=== PATIENT | female | born 1990 | race Caucasian/White ===

== ENCOUNTER → 2023-10-17 | Emergency (ER) | payer SELFPAY ==
[~2023-10-17] MED LIST: ACETAMINOPHEN 500 MG TAB ONE; HYDROCODONE/APAP 7.5/325 MG TAB ONE; NEOMYCIN/BAC/POLY OPTH 3.5GM ONE
--- NOTE | 2023-10-17 11:03 | RAD REPORT ---
EXAM DESCRIPTION: CT - CTHCSPWOC - 10/17/2023 10:58 am CLINICAL HISTORY: Trauma, head and neck injury. PAIN COMPARISON: No comparisons TECHNIQUE: Axial 5 mm thick images of the head were obtained. Axial 2 mm thick images of the cervical spine were obtained with sagittal and coronal reconstruction images generated and reviewed. All CT scans are performed using dose optimization technique as appropriate and may include automated exposure control or mA/KV adjustment according to patient size. FINDINGS: CT HEAD WITHOUT CONTRAST: No acute hemorrhage, hydrocephalus or extra-axial collection is identified.No areas of brain edema or midline shift. The paranasal sinuses and mastoids are clear.The calvarium is intact. CT CERVICAL SPINE WITHOUT CONTRAST: No fracture or subluxation.No prevertebral soft tissues swelling is identified. IMPRESSION: No acute intracranial or cervical spine findings.
--- NOTE | 2023-10-17 11:10 | ER ---
Nurse's Notes [facility] Name: Alyssa Miller Age: 33 yrs Sex: Female : 1990 Arrival Date: 10/17/2023 Time: 10:21 Bed 19 Private MD: Diagnosis: Fall on same level, unspecified;Unspecified injury of head, initial encounter;Contusion of unspecified part of head;Abrasion of other part of head-head and face;Strain of muscle, fascia and tendon at neck level, initial encounter Presentation: 10/17 10:31 Chief complaint: Patient states: Fell face forward on concrete, last night while rob1 attempting to grab her dog, "drunk". CO headache. No LOC. 10:31 Coronavirus screen: Vaccine status: Patient reports receiving the 2nd dose of the covid nj1 vaccine. Ebola Screen: Patient denies travel to an Ebola-affected area in the 21 days before illness onset. Initial Sepsis Screen: Does the patient meet any 2 criteria? No. Patient's initial sepsis screen is negative. Does the patient have a suspected source of infection? No. Patient's initial sepsis screen is negative. Risk Assessment: Do you want to hurt yourself or someone else? Patient reports no desire to harm self or others. Onset of symptoms was October 16, 2023. 10:31 Method Of Arrival: Ambulatory [facility] 10:31 Acuity: SHUN 3 [facility] 11:30 Care prior to arrival: None. Care prior to arrival: None. Mechanism of Injury: Fall me1 from standing position. 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 - Social history:: Smoking status: Reported history of juuling and/or vaping. - Immunization history: Last tetanus immunization: - up to date. Screenin:35 [facility] ED Fall Risk Assessment (Adult) History of falling in the last 3 months, me1 including since admission Yes- single mechanical fall (1 pt) Confusion or Disorientation No (0 pts) Intoxicated or Sedated No (0 pts) Impaired Gait No (0 pts) Mobility Assist Device Used No (0 pt) Altered Elimination No (0 pt) Score/Fall Risk Level 0 - 2 = Low Risk Maintained a safe environment, Provided non-skid footwear, Hourly rounding (assess needs \\T\\ fall precautionary measures) done. Abuse screen: Denies threats or abuse. Nutritional screening: No deficits noted. Tuberculosis screening: No symptoms or risk factors identified. Primary Survey: 11:27 NO uncontrolled hemorrhage observed. A: The client is awake and alert. The airway is me1 patent. The client is alert. Airway: patent, No supplemental oxygen in use on arrival. Oral cavity: clear, Trachea midline. Breathing/Chest: Spontaneous respiratory effort, equal unlabored respirations, breath sounds clear bilaterally, regular pattern, symmetrical chest rise and fall. Respiratory effort: spontaneous, unlabored, Breath sounds: clear, bilaterally. Respiratory pattern: regular, Chest inspection: symmetrical rise and fall of the chest. Circulation: No external hemorrhage present. Regular and strong central pulse, skin warm/dry/normal color. Hemorrhage: No external hemorrhage noted. Pulses: palpable right radial artery, right posterior tibial artery, left radial artery and left posterior tibial artery. Skin color: pink, Skin temperature: warm, dry, Heart tones present. Disability Pupils are equal, round, reactive to light and accommodation. Client is alert. Exposure/Environment: There is no evidence of uncontrolled external bleeding. Obvious injury(ies) are noted at this time: abrasions to forehead and nose. 11:27 Reassessment Breathing: Spontaneous respiratory effort, equal unlabored respirations, me1 breath sounds clear bilaterally, regular pattern with symmetrical chest rise and fall. Respiratory effort Spontaneous Unlabored Breath sounds Clear Diminished Respiratory pattern Regular Chest inspection Symmetrical Circulation: No external hemorrhage noted. Regular and strong central pulse, skin warm/dry/normal color. Heart tones Present Pulses Palpable Color [place] Temperature Warm Dry Disability: Pupils Pupils are equal, round, reactive to light and accomodation. Alert. Assessment: 10:35 General: Appears uncomfortable, well groomed, well developed, well nourished, Behavior me1 is calm, cooperative, appropriate for age, Reports fell last night about midnight when trying to lean forward to catch a dog and fell forward hitting her face on the concrete. Abrasions to forehead and nose. c/o headache 05/31. Denies LOC. Pain: Complains of pain in head Pain does not radiate. Pain currently is 10 out of 10 on a pain scale. Quality of pain is described as aching, throbbing, Pain began suddenly, Is continuous. Neuro: Level of Consciousness is awake, alert, obeys commands, Oriented to person, place, time, situation, Appropriate for age. Cardiovascular: Capillary refill < 3 seconds Patient's skin is warm and dry. Respiratory: Airway is patent Trachea midline Respiratory effort is even, unlabored, Respiratory pattern is regular, symmetrical. Derm: Wound noted forehead and nose Wound is abrasion. Vital Signs: 10:30 BP 115 / 72; Pulse 94; Resp 16; Pulse Ox 99% on R/A; me1 10:31 BP 116 / 80; Pulse 89; Resp 18; Temp 99.1(O); Pulse Ox 100% on R/A; Weight 61.23 kg; nj1 Height 5 ft. 3 in. ; Pain 10/10; 11:15 BP 117 / 84; Pulse 95; Resp 16; Pulse Ox 100% on R/A; me1 10:31 Body Mass Index 23.91 (61.23 kg, 160.02 cm) nj1 10:31 Pain Scale: Adult nj1 [place] Coma Score: 10:54 Eye Response: spontaneous(4). Motor Response: obeys commands(6). Verbal Response: iftikhar oriented(5). Total: 15. 11:27 Eye Response: spontaneous(4). Motor Response: obeys commands(6). Verbal Response: me1 oriented(5). Total: 15. Trauma Score (Adult): 11:27 Eye Response: spontaneous(1); Verbal Response: oriented(1); Motor Response: obeys me1 commands(2); Systolic BP: > 89 mm Hg(4); Respiratory Rate: 10 to 29 per min(4); Luann Score: 15; Trauma Score: 12 ED Course: 10:29 Patient arrived in ED. mg5 10:29 Cristian Rios MD is Attending Physician. iftikhar 10:32 Elvia Frey, TOMAS is Primary Nurse. me1 10:35 Patient has correct armband on for positive identification. Bed in low position. Call me1 light in reach. Side rails up X 1. Provided Education on: POC. Verbalized understanding. . 10:35 No provider procedures requiring assistance completed. me1 10:42 Triage completed. nj1 10:57 CT Head C Spine In Process Unspecified. EDMS 11:00 Urinalysis w/ reflexes Sent. me1 11:05 Clavicle Right XRAY In Process Unspecified. EDMS 11:27 Patient maintains SpO2 saturation greater than 95% on room air. me1 11:31 Arm band placed on Patient placed in waiting room. me1 11:31 PREGU Sent. me1 11:31 Patient did not have IV access during this emergency room visit. me1 Administered Medications: 10:55 Not Given (Patient Refused): hydrocodone-acetaminophen(7.5 mg-325 mg) 1 tabs PO once me1 11:01 Drug: Gufxayic-Nltvxhauar-Yblrmculi Topical Ointment 1 application Topical once {Note: me1 forehead and nose abrasion.} Route: Topical; Site: face; 11:31 Follow up: Response: No adverse reaction me1 11:01 Drug: Acetaminophen PO 1000 mg PO once Route: PO; me1 11:30 Follow up: Response: No adverse reaction; Pain is decreased me1 Medication: 10:35 VIS not applicable for this client. me1 Intake: 11:32 PO: 50ml; Total: 50ml. me1 Output: 11:32 Urine: 100ml (Voided); Total: 100ml. me1 Outcome: 11:09 Discharge ordered by . [facility] 11:32 Patient's length of stay was not longer than 2 hours. me1 11:32 Discharged to home ambulatory, with friend, co1 11:32 Condition: stable 11:32 Discharge instructions given to patient, friend, Instructed on discharge instructions, follow up and referral plans. medication usage, Demonstrated understanding of instructions, follow-up care, medications, Prescriptions given X 2, 11:33 Patient left the ED. me1 Signatures: Dispatcher [employer] Cristian Quispe MD MD cha Jaco, Norma RN RN nj1 Elvia Frey RN RN me1 [place] mg5 Corrections: (The following items were deleted from the chart) 10:41 10:35 General: Appears uncomfortable, well groomed, well developed, well nourished, me1 Behavior is calm, cooperative, appropriate for age, Reports fell last night about midnight when trying to lean forward to catch a dog and fell forward hitting her face on the concrete. Abrasions to forehead and nose. c/o headache 05/31 me1
--- NOTE | 2023-10-17 11:10 | EDPHYS ---
Physician Documentation [facility] Name: Alyssa Mliler Age: 33 yrs Sex: Female : 1990 Arrival Date: 10/17/2023 Time: 10:21 Bed 19 Private MD: ED Physician Cristian Rios HPI: 10/17 10:49 This 33 yrs old Female presents to ER via Ambulatory with complaints of Loc, iftikhar Fall Injury. 10:49 Details of fall: The patient fell from an upright position, while walking. Onset: The iftikhar symptoms/episode began/occurred 1 day(s) ago. Associated injuries: The patient sustained injury to the head, abrasion, contusion, hematoma, pain, swelling, tenderness, nose and forehead and head. Severity of symptoms: At their worst the symptoms were mild, in the emergency department the symptoms are unchanged. The patient has not experienced similar symptoms in the past. 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 - Social history:: Smoking status: Reported history of juuling and/or vaping. - Immunization history: Last tetanus immunization: - up to date. ROS: 10:51 Constitutional: Negative for fever, chills, and weight loss, Eyes: Negative for injury, iftikhar pain, redness, and discharge, ENT: Negative for injury, pain, and discharge, Neck: Negative for injury, pain, and swelling, Cardiovascular: Negative for chest pain, palpitations, and edema, Respiratory: Negative for shortness of breath, cough, wheezing, and pleuritic chest pain, Abdomen/GI: Negative for abdominal pain, nausea, vomiting, diarrhea, and constipation, Back: Negative for injury and pain, : Negative for injury, bleeding, discharge, and swelling, Skin: Negative for injury, rash, and discoloration, Neuro: Negative for headache, weakness, numbness, tingling, and seizure, Psych: Negative for depression, anxiety, suicide ideation, homicidal ideation, and hallucinations, Allergy/Immunology: Negative for hives, rash, and allergies, Endocrine: Negative for neck swelling, polydipsia, polyuria, polyphagia, and marked weight changes, Hematologic/Lymphatic: Negative for swollen nodes, abnormal bleeding, and unusual bruising, 10:51 MS/extremity: Positive for pain, of the right clavicle, Exam: 10:51 Constitutional: This is a well developed, well nourished patient who is awake, alert, iftikhar and in no acute distress. Eyes: Pupils equal round and reactive to light, extra-ocular motions intact. Lids and lashes normal. Conjunctiva and sclera are non-icteric and not injected. Cornea within normal limits. Periorbital areas with no swelling, redness, or edema. ENT: Nares patent. No nasal discharge, no septal abnormalities noted. Tympanic membranes are normal and external auditory canals are clear. Oropharynx with no redness, swelling, or masses, exudates, or evidence of obstruction, uvula midline. Mucous membranes moist. Neck: Trachea midline, no thyromegaly or masses palpated, and no cervical lymphadenopathy. Supple, full range of motion without nuchal rigidity, or vertebral point tenderness. No Meningismus. Chest/axilla: Normal chest wall appearance and motion. Nontender with no deformity. No lesions are appreciated. Cardiovascular: Regular rate and rhythm with a normal S1 and S2. No gallops, murmurs, or rubs. Normal PMI, no JVD. No pulse deficits. Respiratory: Lungs have equal breath sounds bilaterally, clear to auscultation and percussion. No rales, rhonchi or wheezes noted. No increased work of breathing, no retractions or nasal flaring. Abdomen/GI: Soft, non-tender, with normal bowel sounds. No distension or tympany. No guarding or rebound. No evidence of tenderness throughout. Back: No spinal tenderness. No costovertebral tenderness. Full range of motion. Skin: Warm, dry with normal turgor. Normal color with no rashes, no lesions, and no evidence of cellulitis. MS/ Extremity: Pulses equal, no cyanosis. Neurovascular intact. Full, normal range of motion. Neuro: Awake and alert, GCS 15, oriented to person, place, time, and situation. Cranial nerves II-XII grossly intact. Motor strength 5/5 in all extremities. Sensory grossly intact. Cerebellar exam normal. Normal gait. 10:51 Head/face: Noted is abrasion(s), contusion, erythema, hematoma, swelling, that is mild, of the top of head, forehead, nose and chin, Vital Signs: 10:30 BP 115 / 72; Pulse 94; Resp 16; Pulse Ox 99% on R/A; me1 10:31 BP 116 / 80; Pulse 89; Resp 18; Temp 99.1(O); Pulse Ox 100% on R/A; Weight 61.23 kg; nj1 Height 5 ft. 3 in. ; Pain 10/10; 11:15 BP 117 / 84; Pulse 95; Resp 16; Pulse Ox 100% on R/A; me1 10:31 Body Mass Index 23.91 (61.23 kg, 160.02 cm) nj1 10:31 Pain Scale: Adult nj1 [place] Coma Score: 10:54 Eye Response: spontaneous(4). Motor Response: obeys commands(6). Verbal Response: iftikhar oriented(5). Total: 15. 11:27 Eye Response: spontaneous(4). Motor Response: obeys commands(6). Verbal Response: me1 oriented(5). Total: 15. Trauma Score (Adult): 11:27 Eye Response: spontaneous(1); Verbal Response: oriented(1); Motor Response: obeys me1 commands(2); Systolic BP: > 89 mm Hg(4); Respiratory Rate: 10 to 29 per min(4); [place] Score: 15; Trauma Score: 12 MDM: 10:29 Patient medically screened. iftikhar 10:31 Patient medically screened. iftikhar 10:54 Differential diagnosis: Contusion of Hematoma on Intracranial bleed- Concussion without iftikhar LOC. cerebral contusion. Differential diagnosis: abrasion, closed head injury, contusion, fracture, laceration, multiple trauma, sprain, strain. Data reviewed: vital signs, nurses notes, radiologic studies, CT scan, plain films. Consideration of Admission/Observation Escalation of care including admission/observation considered. I considered the following discharge prescriptions or medication management in the emergency department Medications were administered in the Emergency Department. See MAR. Independent interpretation of the following test(s) in the Emergency Department CT Scan: My interpretation is ct head and c spine. Test considered but Not performed: Labs: no labs. Historians other than the Patient: Spouse/Significant Other: sig other. 10/17 10:45 Order name: Urinalysis w/ reflexes iftikhar 10/17 10:45 Order name: Clavicle Right XRAY [facility] 10/17 10:45 Order name: CT Head C Spine; Complete Time: 11:08 [facility] 10/17 10:45 Order name: Wound Care; Complete Time: 11:01 [facility] 10/17 10:45 Order name: Ice pack; Complete Time: 10:46 [facility] Administered Medications: 10:55 Not Given (Patient Refused): hydrocodone-acetaminophen(7.5 mg-325 mg) 1 tabs PO once me1 11:01 Drug: Gqwxgiam-Kslvbfelze-Lpvslvtqt Topical Ointment 1 application Topical once {Note: me1 forehead and nose abrasion.} Route: Topical; Site: face; 11:31 Follow up: Response: No adverse reaction me1 11:01 Drug: Acetaminophen PO 1000 mg PO once Route: PO; me1 11:30 Follow up: Response: No adverse reaction; Pain is decreased me1 Disposition Summary: 10/17/23 11:09 Discharge Ordered Notes: Location: Home iftikhar Problem: new iftikhar Symptoms: have improved iftikhar Condition: Stable iftikhar Diagnosis - Fall on same level, unspecified iftikhar - Unspecified injury of head, initial encounter iftikhar - Contusion of unspecified part of head iftikhar - Abrasion of other part of head - head and face iftikhar - Strain of muscle, fascia and tendon at neck level, initial encounter iftikhar Followup: iftikhar - With: Private Physician - When: 2 - 3 days - Reason: Recheck today's complaints, Continuance of care, Re-evaluation by your physician Discharge Instructions: - Discharge Summary Sheet iftikhar - Head Injury, Adult iftikhar - Muscle Strain iftikhar - Neck Contusion iftikhar - Muscle Strain, Urba-mr-Vple iftikhar - Head Injury, Adult, Mner-lh-Ijde iftikhar - Neck Contusion, Nrvw-nl-Sgoi [facility] Forms: - Work release form bd - Medication Reconciliation Form [facility] - Thank You Letter [facility] - Antibiotic Education iftikhar - Prescription Opioid Use iftikhar - Patient Portal Instructions [facility] - Leadership Thank You Letter [facility] Prescriptions: - Centany 2 % Topical ointment - apply 1 application TOPICAL route 3 times per day; 30 gram tube; Refills: 0, iftikhar Product Selection Permitted - Ibuprofen 600 mg Oral Tablet - take 1 tablet ORAL route every 6 hours As needed take with food; 30 tablet; iftikhar Refills: 0, Product Selection Permitted Signatures: Dispatcher [employer] Cristian Quispe MD MD cha Jaco, Norma RN RN nj1 Elvia Frey, RN RN me1
--- NOTE | 2023-10-17 11:12 | RAD REPORT ---
EXAM DESCRIPTION: RAD - Clavicle Right - 10/17/2023 11:04 am CLINICAL HISTORY: PAIN COMPARISON: No comparisons FINDINGS/IMPRESSION: No acute fracture. No malalignment. No significant focal degenerative changes.
[2023-10-17 11:19] LABS: Specific Gravity < 1.005 (1.005-1.030); Urine Bacteria <20 /HPF (<20); Urine Bilirubin NEGATIVE (Negative); Urine Blood Negative (Negative); Urine Clarity Turbid (Clear); Urine Color Colorless (Yellow); Urine Glucose NEGATIVE (Negative); Urine Protein NEGATIVE (Negative); Urine RBC <5 /HPF (None Seen); Urine Urobilinogen Normal (Normal); Urine pH 6.5 (5.0-7.0)
[2023-10-17 12:15] VITALS: BP 116/80; TEMP 99.1; O2SAT 100
== END ==
LOC: ER 10:21
DX: S00.83XA Contusion of other part of head, initial encounter (principal); S00.81XA Abrasion of other part of head, initial encounter; S16.1XXA Strain of muscle, fascia and tendon at neck level, initial encounter; W18.30XA Fall on same level, unspecified, initial encounter
CPT/HCPCS: 70450; 72125; 81001; 99284

== ENCOUNTER → 2023-11-16 | Emergency (ER) | payer OTHER, SELFPAY ==
[~2023-11-16] MED LIST changes: -ACETAMINOPHEN 500 MG TAB ONE; +FAMOTIDINE 20 MG/2 ML VIAL IV ONE; -HYDROCODONE/APAP 7.5/325 MG TAB ONE; -NEOMYCIN/BAC/POLY OPTH 3.5GM ONE; +ONDANSETRON 4 MG/2 ML VIAL ONE
--- OUTSIDE RECORDS SUMMARY | 2023-11-16 12:10 | XMS REPORT | Continuity of Care Document ---
Author Name Unknown Address [address] [place] [address] [employer] Address [address] [place] [address] Care Team Providers [facility] Director Name Role Phone Unavailable Unavailable Unavailable Encounters Start Date/Time End Date/Time Encounter Type Admission Type Attending Clinicians Care Facility Care Department Encounter ID Source 2023-03-17 08:31:23 2023-03-17 08:31:23 Outpatient [facility] [id number] Matty Rai
--- NOTE | 2023-11-16 13:01 | RAD REPORT ---
EXAM DESCRIPTION: US - Abdomen Exam Limited - 11/16/2023 12:35 pm CLINICAL HISTORY: Abdominal pain. COMPARISON: None. FINDINGS: Limited evaluation as patient not fasting Gallbladder is contracted. A gallstone not visualized. The biliary tree is normal caliber. IMPRESSION: Limited examination without visualization of a gross abnormality
[2023-11-16 13:19] LABS: Absolute Eosinophils 0.1 K/uL (0-0.5); Absolute Lymphocytes (CBC) 1.6 K/uL (0.7-4.9); Absolute Monocytes 0.3 K/uL (0.1-1.3); Absolute Neutrophil 2.3 K/uL (1.8-8.0); Basophils % 1.2 % (0-1.3); Hematocrit 39.8 % (36.0-45.0); Hemoglobin 13.3 g/dL (12.0-15.0); Lymphocytes % 36.3 % (15.3-44.8); MCH 32.2 pg (27.0-35.0); MCHC 33.4 g/dL (32.0-36.0); MCV 96.6 fL (80-100); MPV 7.8 fL (7.6-11.3); Monocytes % 6.5 % (3.3-12.3); Platelets 394 thou/uL (152-406); RBC Red Blood Cell Count 4.12 M/uL (3.86-4.86); Red Cell Distribution Width 13.8 % (12.1-15.2); Specific Gravity 1.011 (1.005-1.030); Urine Bilirubin NEGATIVE (Negative); Urine Blood Negative (Negative); Urine Clarity Clear (Clear); Urine Color Light-Yellow (Yellow); Urine Glucose NEGATIVE (Negative); Urine Ketones NEGATIVE (Negative); Urine Microscopic Reflex YN NO UMIC; Urine Nitrite NEGATIVE (Negative); Urine Protein NEGATIVE (Negative); Urine Urobilinogen Normal (Normal)
[2023-11-16 13:21] LABS: Specific Gravity 1.011 (1.005-1.030)
[2023-11-16 13:25] LABS: PT Prothrombin Time 10.7 SECONDS (9.5-12.5); Protime INR 0.97
[2023-11-16 13:35] LABS: Albumin 3.9 g/dL (3.4-5.0); Albumin/Globulin Ratio 0.9 (1.1-1.8); Anion Gap 11.2 mEq/L (5.0-15.0); Bilirubin Total 0.2 mg/dL (0.2-1.0); Globulin 4.4 g/dL (2.3-3.5); Potassium 3.2 mEq/L (3.5-5.1); Protein, Total 8.3 g/dL (6.4-8.2)
--- NOTE | 2023-11-16 13:58 | RAD REPORT ---
EXAM DESCRIPTION: CT - Chest Abdomen Pelvis W Cont - 11/16/2023 1:39 pm CLINICAL HISTORY: Chest and abdominal pain hematemesis COMPARISON: none TECHNIQUE: Computed axial tomography of the chest, abdomen and pelvis was obtained. 100 cc Isovue-30 0 was administered intravenously. Oral contrast was not requested. This limits evaluation of bowel. All CT scans are performed using dose optimization technique as appropriate and may include automated exposure control or mA/KV adjustment according to patient size. FINDINGS: The lungs are clear No mediastinal or hilar lymphadenopathy. No pleural effusion. No pericardial effusion. Small low-density hepatic lesions nonspecific but probably benign. Spleen, pancreas, adrenals and kidneys are unremarkable No evidence of diverticulitis No adnexal mass. Tampon within the vagina. No gross abnormality esophagus/stomach. Bladder wall is mildly thickened IMPRESSION: Bladder wall is mildly thickened. This could be secondary to incomplete distention or mi ld cystitis
--- NOTE | 2023-11-16 14:09 | ER ---
Nurse's Notes [facility] Name: Alyssa Miller Age: 33 yrs Sex: Female : 1990 Arrival Date: 11/16/2023 Time: 12:07 Bed 13 Private MD: Diagnosis: Nausea with vomiting, unspecified;Hematemesis Presentation: 11/15 12:17 Chief complaint: Vomiting bright red blood with clots and chest pressure x 3 days, hb scant amount of vomiting blood for the last month. Coronavirus screen: At this time, the client does not indicate any symptoms associated with coronavirus-19. Ebola Screen: No symptoms or risks identified at this time. Initial Sepsis Screen: Does the patient meet any 2 criteria? No. Patient's initial sepsis screen is negative. Does the patient have a suspected source of infection? No. Patient's initial sepsis screen is negative. Risk Assessment: Do you want to hurt yourself or someone else? Patient reports no desire to harm self or others. Onset of symptoms was September 2023. 12:17 Method Of Arrival: Ambulatory hb 12:18 Acuity: SHUN 3 hb Triage Assessment: 12:18 General: Appears in no apparent distress. Behavior is calm, cooperative. Neuro: Level hb of Consciousness is awake, alert, obeys commands, Oriented to person, place, time, situation. Cardiovascular: Patient's skin is warm and dry. Respiratory: Respiratory effort is even, unlabored, Respiratory pattern is regular, symmetrical. GI: Reports vomiting, blood. 12:19 Pain: Pain currently is 8 out of 10 on a pain scale. 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 - Social history:: Smoking status: Patient denies any tobacco usage or history of. Patient uses alcohol, 3 x week. - Family history:: not pertinent. - Hospitalizations: : No recent hospitalization is reported. Screenin:55 [facility] ED Fall Risk Assessment (Adult) History of falling in the last 3 months, ld1 including since admission No falls in past 3 months (0 pts). Abuse screen: Denies threats or abuse. Denies injuries from another. Nutritional screening: No deficits noted. Tuberculosis screening: No symptoms or risk factors identified. Assessment: 12:40 General: Pt called back to the diagnostic chairs for work up and EKG. kd3 13:53 General: Appears in no apparent distress. uncomfortable, Behavior is calm, cooperative, ld1 appropriate for age. Pain: Complains of pain in chest Pain does not radiate. Pain currently is 8 out of 10 on a pain scale. Quality of pain is described as throbbing, Pain began suddenly, Is continuous. Neuro: Level of Consciousness is awake, alert, obeys commands, Oriented to person, place, time, situation. Cardiovascular: Capillary refill < 3 seconds Patient's skin is warm and dry. Cardiovascular: Reports chest pain. Respiratory: Airway is patent Respiratory effort is even, unlabored. GI: Abdomen is flat, non-distended. : No signs and/or symptoms were reported regarding the genitourinary system. EENT: No signs and/or symptoms were reported regarding the EENT system. Derm: No signs and/or symptoms reported regarding the dermatologic system. Musculoskeletal: No signs and/or symptoms reported regarding the musculoskeletal system. Vital Signs: 12:18 BP 113 / 81; Pulse 96; Resp 16; Temp 98.5; Pulse Ox 98% on R/A; Weight 61.23 kg; Height hb 5 ft. 3 in. ; Pain 8/10; 13:54 BP 116 / 85; Pulse 87; Resp 18; Pulse Ox 99% on R/A; ld1 12:18 Body Mass Index 23.91 (61.23 kg, 160.02 cm) hb 12:18 Pain Scale: Adult hb ED Course: 12:10 Patient arrived in ED. rg4 12:13 Yuval Nava MD is Attending Physician. rn 12:20 Arm band placed on. hb 12:22 Triage completed. hb 12:37 US Abdomen Limited In Process Unspecified. EDMS 13:05 No provider procedures requiring assistance completed. Inserted saline lock: 22 gauge ld1 in right antecubital area, using aseptic technique. Blood collected. 13:06 Ptt, Activated Sent. bc6 13:06 PT-INR Sent. bc6 13:06 CBC with Diff Sent. bc6 13:06 CMP Sent. bc6 13:06 Lipase Sent. bc6 13:06 Test, Urine Sent. bc6 13:06 Urinalysis w/ reflexes Sent. bc6 13:33 Heidy Wiley, RN is Primary Nurse. ld1 13:41 CT Chest, Abdomen, Pelvis - W/Contrast In Process Unspecified. EDMS 13:55 Patient has correct armband on for positive identification. Placed in gown. Bed in low ld1 position. Call light in reach. Side rails up X2. youth nutritional monitor on. Pulse ox on. NIBP on. Door closed. Noise minimized. Warm blanket given. 14:08 Jarrell Ellis MD is Referral Physician. rn 14:33 IV discontinued, intact, bleeding controlled, No redness/swelling at site. ld1 14:34 Provided Education on: medication. ld1 Administered Medications: 13:52 Drug: Famotidine IVP 20 mg IVP once; dilute with 10 mL 0.9% NaCl; give over 2 minutes ld1 Route: IVP; Site: right antecubital; 13:52 Drug: Ondansetron IVP 4 mg IVP once; over 2 minutes Route: IVP; Site: right antecubital;ld1 Medication: 14:33 VIS not applicable for this client. ld1 Outcome: 14:08 Discharge ordered by . rn 14:33 Discharged to home ambulatory, ld1 14:33 Condition: stable 14:33 Discharge instructions given to patient, Instructed on discharge instructions, follow up and referral plans. medication usage, Demonstrated understanding of instructions, follow-up care, medications, Prescriptions given X 2, 14:34 Patient left the ED. ld1 Signatures: Dispatcher [employer] EDMS Yuval Nava MD MD rn Baxter, Heather, RN RN hb Garcia, Rubi rg4 Heidy Wiley, RN RN ld1 Germaine Warner RN RN kd3 Rachel Goss bc6 Corrections: (The following items were deleted from the chart) 12:19 12:17 Chief complaint: Vomiting blood x 1 month, chest pain today. hb hb 12:22 12:17 Chief complaint: Vomiting bright red blood with clots x 3 days, scant amount of hb vomiting blood for the last month. hb
--- NOTE | 2023-11-16 14:09 | EDPHYS ---
Physician Documentation [facility] Name: Alyssa Miller Age: 33 yrs Sex: Female : 1990 Arrival Date: 11/16/2023 Time: 12:07 Bed 13 Private MD: ED Physician Yuval Nava HPI: 11/15 14:03 This 33 yrs old Female presents to ER via Ambulatory with complaints of Vomiting, Chest rn Pain. 14:03 The patient presents to the emergency department with nausea, vomiting. rn 14:03 Onset: The symptoms/episode began/occurred 3 day(s) ago. Possible causes: unknown. The rn symptoms are aggravated by alcohol, The symptoms are alleviated by nothing. Severity of symptoms: At their worst the symptoms were mild in the emergency department the symptoms are unchanged. The patient has not experienced similar symptoms in the past. Patient reports several days of nausea and vomiting with chest pain. Has noticed small amounts of blood in the emesis. States has had symptoms of acid reflux and nausea for the last month but worse over the last few days. States on the weekend drinks heavily but not a daily drinker. No blood in stool. No known liver problems. No blood thinners.. 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 - Social history:: Smoking status: Patient denies any tobacco usage or history of. Patient uses alcohol, 3 x week. - Family history:: not pertinent. - Hospitalizations: : No recent hospitalization is reported. ROS: 14:03 Constitutional: Negative for fever, chills, and weight loss, Cardiovascular: Negative rn for chest pain, palpitations, and edema, Respiratory: Negative for shortness of breath, cough, wheezing, and pleuritic chest pain, Abdomen/GI: Positive for nausea and hematemesis (small episodes) Back: Negative for injury and pain, MS/Extremity: Negative for injury and deformity, Skin: Negative for injury, rash, and discoloration, Neuro: Negative for headache, weakness, numbness, tingling, and seizure, Exam: 14:03 Constitutional: This is a well developed, well nourished patient who is awake, alert, rn and in no acute distress. Cardiovascular: Regular rate and rhythm. No pulse deficits. Respiratory: No increased work of breathing, no retractions or nasal flaring. Abdomen/GI: Soft, nontender no rebound or guarding MS/ Extremity: Pulses equal, no cyanosis. Neuro: Awake and alert, GCS 15 Vital Signs: 12:18 BP 113 / 81; Pulse 96; Resp 16; Temp 98.5; Pulse Ox 98% on R/A; Weight 61.23 kg; Height hb 5 ft. 3 in. ; Pain 8/10; 13:54 BP 116 / 85; Pulse 87; Resp 18; Pulse Ox 99% on R/A; ld1 12:18 Body Mass Index 23.91 (61.23 kg, 160.02 cm) hb 12:18 Pain Scale: Adult hb MDM: 12:13 Patient medically screened. rn 14:03 Differential diagnosis: Nonspecific abd pain, gastritis, cholecystitis, viral rn gastroenteritis, gastroenteritis, Vanessa-Choi, hematemesis, esophagitis, gastritis, GERD. Data reviewed: vital signs, nurses notes, lab test result(s), radiologic studies, CT scan, ultrasound, and as a result, I will discharge patient. Counseling: I had a detailed discussion with the patient and/or guardian regarding the historical points, exam findings, and any diagnostic results supporting the discharge/admit diagnosis, lab results, radiology results, the need for outpatient follow up, to return to the emergency department if symptoms worsen or persist or if there are any questions or concerns that arise at home. Special discussion: Based on the patient's Hx, exam, and Dx evaluation, there is no indication for emergent surgery or inpatient Tx. It is understood by the patient/guardian that if the Sx's persist or worsen they need to return immediately for re-evaluation. I discussed with the patient/guardian in detail that at this point there is no indication for admission to the hospital. It is understood, however, that if the symptoms persist or worsen the patient needs to return immediately for re-evaluation. Based on the history and exam findings, there is no indication for further emergent testing or inpatient evaluation. I discussed with the patient/guardian the need to see the rotary furnace tender for further evaluation of the symptoms. ED course: Labs unremarkable. Normal H\T\H. No acute findings on CT or ultrasound. Will discharge home with instructions to stop drinking, antacids, GI follow-up, and return precautions.. 11/15 12:23 Order name: CBC with Diff; Complete Time: 13:58 rn 11/15 12:23 Order name: CMP; Complete Time: 13:58 rn 11/15 12:23 Order name: Lipase; Complete Time: 13:58 rn 11/15 12:23 Order name: Test, Urine; Complete Time: 13:58 rn 11/15 12:23 Order name: Urinalysis w/ reflexes; Complete Time: 13:58 rn 11/15 12:23 Order name: PT-INR; Complete Time: 13:58 rn 11/15 12:23 Order name: Ptt, Activated; Complete Time: 13:58 rn 11/15 12:23 Order name: US Abdomen Limited; Complete Time: 13:58 11/15 12:23 Order name: CT Chest, Abdomen, Pelvis - W/Contrast; Complete Time: 13:58 rn 11/15 12:23 Order name: IV Saline Lock; Complete Time: 13:06 rn 11/15 12:23 Order name: Labs collected and sent; Complete Time: 13:06 rn Administered Medications: 13:52 Drug: Famotidine IVP 20 mg IVP once; dilute with 10 mL 0.9% NaCl; give over 2 minutes ld1 Route: IVP; Site: right antecubital; 13:52 Drug: Ondansetron IVP 4 mg IVP once; over 2 minutes Route: IVP; Site: right antecubital;ld1 Disposition Summary: 11/16/23 14:08 Discharge Ordered Notes: Location: Home rn Problem: new rn Symptoms: have improved rn Condition: Stable rn Diagnosis - Nausea with vomiting, unspecified rn - Hematemesis rn Followup: rn - With: Jarrell Ellis MD - When: As needed - Reason: Recheck today's complaints, Re-evaluation by your physician Discharge Instructions: - Discharge Summary Sheet rn - Hematemesis rn - Vanessa-Choi Syndrome rn - Nausea and Vomiting, Adult rn Forms: - Medication Reconciliation Form rn - Thank You Letter rn - Antibiotic rn medicare - Prescription Opioid Use rn - Patient Portal Instructions rn - Leadership Thank You Letter rn - Work release form kd3 Prescriptions: - ondansetron 4 mg Oral Tablet,disintegrating - take 1 tablet ORAL route every 8 hours As needed; 12 tablet; Refills: 0, rn Product Selection Permitted - Protonix 40 mg Oral Tablet - take 1 tablet ORAL route once daily; 30 tablet; Refills: 0, Product Selection rn Permitted Signatures: Dispatcher [employer] Yuval Gaspar MD MD rn Baxter, Heather, RN RN Heidy Wiley RN RN ld1
[2023-11-16 15:33] VITALS: BP 116/85; TEMP 98.5; O2SAT 99
== END ==
LOC: ER 12:07
DX: K92.0 Hematemesis (principal); F31.9 Bipolar disorder, unspecified
CPT/HCPCS: 85025; 36415; 81025; 85610; 85730; 81003; 83690; 80053; 71260; 74177; 76705; Q9967; J2405

== ENCOUNTER 2023-11-17 11:51 | Emergency (ER) | payer OTHER ==
--- OUTSIDE RECORDS SUMMARY | 2023-11-17 11:55 | XMS REPORT | Continuity of Care Document ---
Author Name Unknown Address [address] [place] [address] thconnect Address [address] [place] [address] [address] [place] [address] Care Team Providers Care Burrer Hand Name Role Phone Unavailable Unavailable Unavailable Encounters Start Date/Time End Date/Time Encounter Type Admission Type Attending Clinicians Care Facility Care Department Encounter ID Source 2023-03-17 08:31:23 2023-03-17 08:31:23 Outpatient [facility] [id number] Matty Rai
[2023-11-17] MEDS ORDERED: NA CHLORIDE 0.9% 1,000 ML ONE (12:20)
[2023-11-17] MEDS ORDERED: ONDANSETRON 4 MG/2 ML VIAL ONE (12:20)
[2023-11-17 12:37] LABS: Absolute Eosinophils 0.1 K/uL (0-0.5); Absolute Lymphocytes (CBC) 1.8 K/uL (0.7-4.9); Absolute Monocytes 0.4 K/uL (0.1-1.3); Absolute Neutrophil 3.8 K/uL (1.8-8.0); Basophils % 0.8 % (0-1.3); Eosinophils % 1.2 % (0-4.4); Hematocrit 36.4 % (36.0-45.0); Lymphocytes % 29.3 % (15.3-44.8); MCH 31.7 pg (27.0-35.0); MCHC 33.1 g/dL (32.0-36.0); MCV 95.7 fL (80-100); MPV 7.3 fL (7.6-11.3); Monocytes % 7.3 % (3.3-12.3); Neutrophils % 61.4 % (41.7-73.7); Platelets 379 thou/uL (152-406)
[2023-11-17 12:49] LABS: Specific Gravity 1.008 (1.005-1.030)
[2023-11-17 12:52] LABS: Specific Gravity 1.008 (1.005-1.030); Urine Bacteria <20 /HPF (<20); Urine Bilirubin NEGATIVE (Negative); Urine Blood Negative (Negative); Urine Clarity Extremely Turbid (Clear); Urine Color Light-Yellow (Yellow); Urine Culture Reflex Order NOT NEEDED; Urine Glucose NEGATIVE (Negative); Urine Ketones NEGATIVE (Negative); Urine Microscopic Reflex YN ORDER UMIC; Urine Mucus Slight /HPF (None Seen); Urine Nitrite NEGATIVE (Negative); Urine Protein NEGATIVE (Negative); Urine RBC <5 /HPF (None Seen); Urine Urobilinogen Normal (Normal); Urine WBC <5 /HPF (<5)
[2023-11-17 12:53] LABS: Albumin 3.4 g/dL (3.4-5.0); Albumin/Globulin Ratio 0.9 (1.1-1.8); Anion Gap 11.1 mEq/L (5.0-15.0); Bilirubin Total 0.2 mg/dL (0.2-1.0); Globulin 3.8 g/dL (2.3-3.5); Potassium 3.1 mEq/L (3.5-5.1); Protein, Total 7.2 g/dL (6.4-8.2)
--- NOTE | 2023-11-17 13:15 | ER ---
Nurse's Notes [facility] Name: Alyssa Miller Age: 33 yrs Sex: Female : 1990 Arrival Date: 11/17/2023 Time: 11:51 Bed 15 Private MD: Diagnosis: Bipolar disorder, unspecified;GI Bleed/ Gastrointestinal hemorrhage, unspecified-UPPER, STABLE;Epigastric abdominal tenderness;Vomiting;Hematemesis;Hypokalemia Presentation: 11/16 12:07 Chief complaint: EMS states: vomiting blood since yesterday , was seen here and sent iw home with antacid, today symptoms are worse, she is having more abd pain. Coronavirus screen: At this time, the client does not indicate any symptoms associated with coronavirus-19. Ebola Screen: Patient negative for fever greater than or equal to 101.5 degrees Fahrenheit, and additional compatible Ebola Virus Disease symptoms Patient denies exposure to infectious person. Patient denies travel to an Ebola-affected area in the 21 days before illness onset. No symptoms or risks identified at this time. Initial Sepsis Screen: Does the patient meet any 2 criteria? No. Patient's initial sepsis screen is negative. Does the patient have a suspected source of infection? No. Patient's initial sepsis screen is negative. Risk Assessment: Do you want to hurt yourself or someone else? Patient reports no desire to harm self or others. Onset of symptoms was November 17, 2023. 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 - Social history:: Smoking status: Reported history of juuling and/or vaping. Screenin:25 [facility] ED Fall Risk Assessment (Adult) History of falling in the last 3 months, me1 including since admission No falls in past 3 months (0 pts) Confusion or Disorientation No (0 pts) Intoxicated or Sedated No (0 pts) Impaired Gait No (0 pts) Mobility Assist Device Used No (0 pt) Altered Elimination No (0 pt) Score/Fall Risk Level 0 - 2 = Low Risk Maintained a safe environment, Provided non-skid footwear, Hourly rounding (assess needs \T\ fall precautionary measures) done. Abuse screen: Denies threats or abuse. Nutritional screening: No deficits noted. Tuberculosis screening: No symptoms or risk factors identified. Assessment: 12:25 General: Appears uncomfortable, ill, well groomed, well developed, well nourished, me1 Behavior is calm, cooperative, appropriate for age, Reports seen here yesterday for vomiting blood. Has continued to have bloody emesis and now has RUQ pain. Pain: Complains of pain in right upper quadrant Pain does not radiate. Pain currently is 9 out of 10 on a pain scale. Quality of pain is described as sharp, Pain began gradually, 1 day ago. Is continuous. Neuro: Level of Consciousness is awake, alert, obeys commands, Oriented to person, place, time, situation, Appropriate for age. Cardiovascular: Capillary refill < 3 seconds Patient's skin is warm and dry. Respiratory: Airway is patent Respiratory effort is even, unlabored, Respiratory pattern is regular, symmetrical. GI: Abdomen is flat, Reports upper abdominal pain, nausea, vomiting. : No signs and/or symptoms were reported regarding the genitourinary system. EENT: No signs and/or symptoms were reported regarding the EENT system. Derm: No signs and/or symptoms reported regarding the dermatologic system. Derm: Skin is intact, is healthy with good turgor, Skin is pink, warm \T\ dry. Musculoskeletal: No signs and/or symptoms reported regarding the musculoskeletal system. Vital Signs: 12:10 BP 109 / 76; Pulse 95; Resp 16; Temp 98.9(O); Pulse Ox 96% ; iw 13:00 BP 108 / 75; Pulse 97; Resp 16; Pulse Ox 100% on R/A; me1 14:00 BP 102 / 73; Pulse 80; Resp 16; Pulse Ox 99% on R/A; me1 ED Course: 12:07 Patient arrived in ED. iw 12:08 Triage completed. iw 12:08 Cristian Rios MD is Attending Physician. [facility] 12:09 Arm band placed on. iw 12:10 Abril Pelayo RN is Primary Nurse. iw 12:25 Patient has correct armband on for positive identification. Bed in low position. Call me1 light in reach. Side rails up X 1. Provided Education on: POC. Verbalized understanding. . Client placed on continuous cardiac and pulse oximetry monitoring. NIBP monitoring applied. Pulse ox on. NIBP on. 12:25 No provider procedures requiring assistance completed. Maintain EMS IV. Dressing me1 intact. Good blood return noted. Site clean \T\ dry. Gauge \T\ site: 20g RAC. 12:31 Initial lab(s) drawn, by me, sent to lab. me1 12:32 Lipase Sent. me1 12:32 Comprehensive Metabolic Panel Sent. me1 12:32 CBC with Diff Sent. me1 12:51 Elvia Frey, TOMAS is Primary Nurse. me1 13:12 Barry Mckeon MD is Referral Physician. iftikhar 14:17 IV discontinued, intact, bleeding controlled, No redness/swelling at site. Pressure me1 dressing applied. Administered Medications: 12:24 Drug: Ondansetron IVP 4 mg IVP once; over 2 minutes Route: IVP; Site: right antecubital;me1 13:24 Follow up: Response: No adverse reaction; Nausea unchanged me1 12:51 Drug: NS 0.9% IV 1000 ml IV at 1 bolus Per protocol; 1000 mL bolus Route: IV; Rate: 1 me1 bolus; Site: right antecubital; 14:20 Follow up: IV Status: Completed infusion; IV Intake: 100ml me1 13:23 Drug: Pantoprazole IVP 40 mg IVP once Route: IVP; Site: right antecubital; me1 13:45 Follow up: Response: No adverse reaction me1 13:23 Drug: Promethazine IVP 12.5 mg IVP once Route: IVP; Site: right antecubital; me1 13:45 Follow up: Response: No adverse reaction; Nausea is decreased me1 13:23 Drug: morphine IVP or IV 4 mg IVP once over 4 mins Route: IVP; Infused Over: 4 mins; me1 Site: right antecubital; 13:45 Follow up: Response: No adverse reaction; Pain is decreased me1 13:24 Drug: Sucralfate PO 1 grams PO once Route: PO; me1 13:46 Follow up: Response: No adverse reaction me1 13:42 Drug: Potassium PO Effervescent Tablet 25 mEq PO once; dissolve in 4 ounces of water or me1 juice Route: PO; 14:08 Follow up: Response: No adverse reaction me1 Medication: 12:25 VIS not applicable for this client. me1 Intake: 14:20 IV: 100ml; Total: 100ml. me1 Outcome: 13:14 Discharge ordered by . iftikhar 14:17 Discharged to home ambulatory, with friend, me1 14:17 Condition: stable 14:17 Discharge instructions given to patient, friend, Instructed on discharge instructions, follow up and referral plans. medication usage, Demonstrated understanding of instructions, follow-up care, medications, Prescriptions given X 5 14:20 Patient left the ED. me1 Signatures: Cristian Rios MD MD cha Williams, Irene, RN RN Elvia Frey RN RN me1
--- NOTE | 2023-11-17 13:15 | EDPHYS ---
Physician Documentation [facility] Name: Alyssa Miller Age: 33 yrs Sex: Female : 1990 Arrival Date: 11/17/2023 Time: 11:51 Bed 15 Private MD: ED Physician Cristian Rios HPI: 11/16 13:04 This 33 yrs old Female presents to ER via EMS with complaints of iftikhar Nausea/Vomiting. 13:04 The patient presents to the emergency department with nausea, vomiting, abdominal pain, iftikhar of the right upper quadrant and right lower quadrant. Onset: The symptoms/episode began/occurred 2 day(s) ago. Possible causes: unknown. 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 - Social history:: Smoking status: Reported history of juuling and/or vaping. ROS: 13:05 Constitutional: Negative for fever, chills, and weight loss, Eyes: Negative for injury, iftikhar pain, redness, and discharge, ENT: Negative for injury, pain, and discharge, Neck: Negative for injury, pain, and swelling, Cardiovascular: Negative for chest pain, palpitations, and edema, Respiratory: Negative for shortness of breath, cough, wheezing, and pleuritic chest pain, Back: Negative for injury and pain, : Negative for injury, bleeding, discharge, and swelling, MS/Extremity: Negative for injury and deformity, Skin: Negative for injury, rash, and discoloration, Neuro: Negative for headache, weakness, numbness, tingling, and seizure, Psych: Negative for depression, anxiety, suicide ideation, homicidal ideation, and hallucinations, Allergy/Immunology: Negative for hives, rash, and allergies, Endocrine: Negative for neck swelling, polydipsia, polyuria, polyphagia, and marked weight changes, Hematologic/Lymphatic: Negative for swollen nodes, abnormal bleeding, and unusual bruising, 13:05 Abdomen/GI: Positive for abdominal pain, nausea and vomiting, hematemesis, Exam: 13:05 Constitutional: This is a well developed, well nourished patient who is awake, alert, iftikhar and in no acute distress. Head/Face: Normocephalic, atraumatic. Eyes: Pupils equal round and reactive to light, extra-ocular motions intact. Lids and lashes normal. Conjunctiva and sclera are non-icteric and not injected. Cornea within normal limits. Periorbital areas with no swelling, redness, or edema. ENT: Nares patent. No nasal discharge, no septal abnormalities noted. Tympanic membranes are normal and external auditory canals are clear. Oropharynx with no redness, swelling, or masses, exudates, or evidence of obstruction, uvula midline. Mucous membranes moist. Neck: Trachea midline, no thyromegaly or masses palpated, and no cervical lymphadenopathy. Supple, full range of motion without nuchal rigidity, or vertebral point tenderness. No Meningismus. Chest/axilla: Normal chest wall appearance and motion. Nontender with no deformity. No lesions are appreciated. Cardiovascular: Regular rate and rhythm with a normal S1 and S2. No gallops, murmurs, or rubs. Normal PMI, no JVD. No pulse deficits. Respiratory: Lungs have equal breath sounds bilaterally, clear to auscultation and percussion. No rales, rhonchi or wheezes noted. No increased work of breathing, no retractions or nasal flaring. Back: No spinal tenderness. No costovertebral tenderness. Full range of motion. Skin: Warm, dry with normal turgor. Normal color with no rashes, no lesions, and no evidence of cellulitis. MS/ Extremity: Pulses equal, no cyanosis. Neurovascular intact. Full, normal range of motion. Neuro: Awake and alert, GCS 15, oriented to person, place, time, and situation. Cranial nerves II-XII grossly intact. Motor strength 5/5 in all extremities. Sensory grossly intact. Cerebellar exam normal. Normal gait. Psych: Awake, alert, with orientation to person, place and time. Behavior, mood, and affect are within normal limits. 13:05 Abdomen/GI: Inspection: abdomen appears normal, Bowel sounds: normal, Palpation: mild abdominal tenderness, in the right upper quadrant and right lower quadrant, Liver: no appreciated palpable abnormalities, Hernia: not appreciated, 13:05 Musculoskeletal/extremity: Circulation is intact in all extremities. Sensation intact. Compartment Syndrome exam of affected extremity: is normal. Weight bearing: able to fully bear weight, DVT Exam: No signs of deep vein thrombosis. no pain, no swelling, no tenderness, negative Homans' sign noted on exam, no appreciated bluish discoloration, no erythema, no increased warmth, Vital Signs: 12:10 BP 109 / 76; Pulse 95; Resp 16; Temp 98.9(O); Pulse Ox 96% ; iw 13:00 BP 108 / 75; Pulse 97; Resp 16; Pulse Ox 100% on R/A; me1 14:00 BP 102 / 73; Pulse 80; Resp 16; Pulse Ox 99% on R/A; me1 MDM: 12:08 Patient medically screened. [facility] 13:11 Differential diagnosis: Nonspecific abd pain, gastritis, cholecystitis, pancreatitis, iftikhar appendicitis, diverticulitis, viral gastroenteritis, gastroenteritis. Data reviewed: vital signs, nurses notes, lab test result(s), EKG, radiologic studies, CT scan, plain films. Consideration of Admission/Observation Escalation of care including admission/observation considered. I considered the following discharge prescriptions or medication management in the emergency department Medications were administered in the Emergency Department. See MAR. Independent interpretation of the following test(s) in the Emergency Department CT Scan: My interpretation is CT AND GB FROM 11/15. Test considered but Not performed: CT: NO REPEAT CT/USG. Care significantly affected by the following chronic conditions: BIPOLAR. 11/16 12:10 Order name: CBC with Diff; Complete Time: 12:55 [facility] 11/16 12:10 Order name: Comprehensive Metabolic Panel; Complete Time: 13:03 [facility] 11/16 12:10 Order name: Lipase; Complete Time: 13:03 [facility] 11/16 12:10 Order name: Urinalysis w/ reflexes; Complete Time: 12:55 [facility] 11/16 12:10 Order name: PREGU; Complete Time: 12:55 [facility] Administered Medications: 12:24 Drug: Ondansetron IVP 4 mg IVP once; over 2 minutes Route: IVP; Site: right antecubital;me1 13:24 Follow up: Response: No adverse reaction; Nausea unchanged me1 12:51 Drug: NS 0.9% IV 1000 ml IV at 1 bolus Per protocol; 1000 mL bolus Route: IV; Rate: 1 me1 bolus; Site: right antecubital; 14:20 Follow up: IV Status: Completed infusion; IV Intake: 100ml me1 13:23 Drug: Pantoprazole IVP 40 mg IVP once Route: IVP; Site: right antecubital; me1 13:45 Follow up: Response: No adverse reaction me1 13:23 Drug: Promethazine IVP 12.5 mg IVP once Route: IVP; Site: right antecubital; me1 13:45 Follow up: Response: No adverse reaction; Nausea is decreased me1 13:23 Drug: morphine IVP or IV 4 mg IVP once over 4 mins Route: IVP; Infused Over: 4 mins; me1 Site: right antecubital; 13:45 Follow up: Response: No adverse reaction; Pain is decreased me1 13:24 Drug: Sucralfate PO 1 grams PO once Route: PO; me1 13:46 Follow up: Response: No adverse reaction me1 13:42 Drug: Potassium PO Effervescent Tablet 25 mEq PO once; dissolve in 4 ounces of water or me1 juice Route: PO; 14:08 Follow up: Response: No adverse reaction me1 Disposition Summary: 11/17/23 13:14 Discharge Ordered Notes: Location: Home iftikhar Problem: new iftikhar Symptoms: have improved iftikhar Condition: Stable iftikhar Diagnosis - Bipolar disorder, unspecified iftikhar - GI Bleed/ Gastrointestinal hemorrhage, unspecified - UPPER, STABLE iftikhar - Epigastric abdominal tenderness iftikhar - Vomiting iftikhar - Hematemesis iftikhar - Hypokalemia iftikhar Followup: iftikhar - With: Private Physician - When: 2 - 3 days - Reason: Recheck today's complaints, Continuance of care, Re-evaluation by your physician Followup: iftikhar - With: Barry Mckeon MD - When: 2 - 3 days - Reason: Recheck today's complaints, Continuance of care, Re-evaluation by your physician Discharge Instructions: - Discharge Summary Sheet iftikhar - Abdominal Pain, Adult iftikhar - Gastrointestinal Bleeding iftikhar - Hematemesis iftikhar - Abdominal Pain, Adult, Lond-no-Dtmk iftikhar - Gastrointestinal Bleeding, [id number] iftikhar - Vomiting, Adult iftikhar Forms: - Medication Reconciliation Form iftikhar - Thank You Letter iftikhar - Antibiotic Education iftikhar - Prescription Opioid Use iftikhar - Patient Portal Instructions iftikhar - Leadership Thank You Letter iftikhar - Work release form me1 Prescriptions: - ondansetron 4 mg Oral Tablet,disintegrating - take 1 tablet ORAL route every 6-8 hours for 5 days; 20 tablet; Refills: 0, iftikhar Product Selection Permitted - promethazine 25 mg Rectal suppository - insert 1 suppository RECTAL route every 6 hours as needed for nausea and iftikhar vomiting; 15 suppository; Refills: 0, Product Selection Permitted - Carafate 1 gram Oral tablet - take 1 tablet ORAL route 4 times per day take on an empty stomach, beginning on iftikhar waking and last dose at bedtime; 40 tablet; Refills: 0, Product Selection Permitted - Protonix 40 mg Oral Tablet - take 1 tablet ORAL route once daily; 30 tablet; Refills: 0, Product Selection iftikhar Permitted - dicyclomine 20 mg Oral tablet - take 1 tablet ORAL route 4 times per day; 28 tablet; Refills: 0, Product iftikhar Selection Permitted Signatures: Dispatcher [employer] Cristian Quispe MD MD cha Williams, Irene RN TOMAS Elvia Frey RN RN me1
[2023-11-17] MEDS ORDERED: PANTOPRAZOLE 40 MG INJ ONE (13:16)
[2023-11-17] MEDS ORDERED: PROMETHAZINE INJ 25 MG/ML AMP ONE (13:16)
[2023-11-17] MEDS ORDERED: SUCRALFATE 1 GM TABLET ONE (13:17)
[2023-11-17] MEDS ORDERED: MORPHINE 4 MG/ML SYR ONE (13:17)
[2023-11-17] MEDS ORDERED: POTASSIUM 25 MEQ EFFERV TAB ONE (13:40)
[2023-11-17 14:49] VITALS: BP 102/73; TEMP 98.9; O2SAT 99
--- NOTE | 2023-11-18 11:56 | EKG ---
Test Date: 2023-11-16 Test Time: 11:53:57 Vp Analysis: PARISH MEASUREMENT RESULTS: Intervals: Rate: 87 GA: 120 QRSD: 86 QT: 386 QTc: 464 [place]: P: 62 GA: 120 QRS: 72 T: 68 INTERPRETIVE STATEMENTS: Normal sinus rhythm Normal ECG No previous ECG available for comparison Electronically Signed On 11-18-23 11:50:33 CDT by Antoine Morales
== END 2023-11-17 14:20 | disposition home or self-care (01) ==
LOC: ER 11:51
DX: K92.0 Hematemesis (principal); E87.6 Hypokalemia; R10.816 Epigastric abdominal tenderness; F31.9 Bipolar disorder, unspecified
CPT/HCPCS: 96361; 93005; 85025; 81001; 36415; 81025; 83690; 80053; 96375; 96374; 99284; J2550; C9113; J2405; J7030

== ENCOUNTER 2023-12-08 13:32 | Emergency (ER) | payer OTHER ==
--- OUTSIDE RECORDS SUMMARY | 2023-12-08 13:35 | XMS REPORT | Continuity of Care Document ---
Author Name Unknown Address [address] [place] [address] [employer] Address [address] [place] [address] [address] [place] [address] Care Team Providers Care Upstream Biomanufacturing Technician Name Role Phone Unavailable Unavailable Unavailable Encounters Start Date/Time End Date/Time Encounter Type Admission Type Attending Clinicians Care Facility Care Department Encounter ID Source 2023-03-17 08:31:23 2023-03-17 08:31:23 Outpatient [facility] [id number] Matty Rai
[2023-12-08] MEDS ORDERED: NA CHLORIDE 0.9% 1,000 ML ONE ×2 (14:17→16:30)
[2023-12-08 14:39] LABS: Specific Gravity 1.013 (1.005-1.030)
[2023-12-08 14:42] LABS: Absolute Basophils 0.1 K/uL (0-0.5); Absolute Eosinophils 0.1 K/uL (0-0.5); Absolute Lymphocytes (CBC) 1.4 K/uL (0.7-4.9); Absolute Monocytes 0.4 K/uL (0.1-1.3); Absolute Neutrophil 3.2 K/uL (1.8-8.0); Basophils % 1.1 % (0-1.3); Eosinophils % 1.2 % (0-4.4); Hematocrit 41.5 % (36.0-45.0); Lymphocytes % 27.8 % (15.3-44.8); MCH 32.5 pg (27.0-35.0); MCHC 33.7 g/dL (32.0-36.0); MCV 96.3 fL (80-100); MPV 7.9 fL (7.6-11.3); Monocytes % 7.5 % (3.3-12.3); Neutrophils % 62.4 % (41.7-73.7); Platelets 316 thou/uL (152-406); RBC Red Blood Cell Count 4.31 M/uL (3.86-4.86); Red Cell Distribution Width 13.6 % (12.1-15.2)
[2023-12-08 14:45] LABS: PT Prothrombin Time 10.3 SECONDS (9.5-12.5); PTT, Activated Partial Thromb 27.3 SECONDS (24.3-36.9); Protime INR 0.93
[2023-12-08 14:46] LABS: Specific Gravity 1.013 (1.005-1.030); Sqamous Epithelial <5 /HPF (None Seen); Urine Bacteria None Seen /HPF (<20); Urine Bilirubin NEGATIVE (Negative); Urine Blood Trace (Negative); Urine Clarity Extremely Turbid (Clear); Urine Color Light-Yellow (Yellow); Urine Culture Reflex Order NOT NEEDED; Urine Glucose NEGATIVE (Negative); Urine Ketones NEGATIVE (Negative); Urine Microscopic Reflex YN ORDER UMIC; Urine Mucus Slight /HPF (None Seen); Urine Nitrite NEGATIVE (Negative); Urine Protein NEGATIVE (Negative); Urine RBC <5 /HPF (None Seen); Urine Urobilinogen Normal (Normal); Urine WBC <5 /HPF (<5)
--- NOTE | 2023-12-08 14:58 | ER ---
Nurse's Notes [facility] Name: Alyssa Miller Age: 33 yrs Sex: Female : 1990 Arrival Date: 12/08/2023 Time: 13:32 Bed 13 Private MD: Diagnosis: Bipolar disorder, current episode depressed, severe, without psychotic features;Suicidal ideations;Alcohol abuse with intoxication Presentation: 12/07 13:32 Chief complaint: Patient states: "I've been having suicidal thoughts for the last 2 aa5 weeks". 13:32 Coronavirus screen: At this time, the client does not indicate any symptoms associated aa5 with coronavirus-19. Ebola Screen: Patient denies travel to an Ebola-affected area in the 21 days before illness onset. Initial Sepsis Screen: Does the patient meet any 2 criteria? HR > 90 bpm. Does the patient have a suspected source of infection? No. Patient's initial sepsis screen is negative. Risk Assessment: Do you want to hurt yourself or someone else? Patient reports desire/thoughts of hurting themselves or someone else. Provider notified. Onset of symptoms was November 2023. 13:32 Acuity: SHUN 2 aa5 13:32 Method Of Arrival: Ambulatory aa5 Triage Assessment: 13:35 General: Appears in no apparent distress. unkempt, Behavior is cooperative, appropriate me1 for age, anxious. 13:35 Pain: Denies pain. Neuro: Level of Consciousness is awake, alert, obeys commands, me1 Oriented to Appropriate for age. 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 me1 Historical: - Allergies: 13:40 No Known Allergies; aa5 - Home Meds: 21:11 Trileptal 150 mg Oral tablet 1 tab once [Active]; Topamax 25 mg oral tablet 1 tab every me1 day at bedtime [Active]; Ativan 1 mg oral tablet 1 tab prn for anxiety [Active]; hydroxyzine HCl 25 mg oral tablet 1 tab every day at bedtime [Active]; mirtazapine 15 mg oral tablet 1 tab every day at bedtime [Active]; trazodone 50 mg Oral tablet 1 tab every day at bedtime [Active]; - PMHx: 13:40 Bipolar disorder; manic depression (Bipolar disorder); aa5 - PSHx: 13:40 None; aa5 - Immunization history:: Adult Immunizations up to date. - Infectious Disease History:: Denies. - Social history:: Smoking status: Reported history of juuling and/or vaping. Screenin:35 [facility] ED Fall Risk Assessment (Adult) History of falling in the last 3 months, me1 including since admission No falls in past 3 months (0 pts). Abuse screen: Denies threats or abuse. Denies injuries from another. Nutritional screening: No deficits noted. 13:35 Tuberculosis screening: No symptoms or risk factors identified. me1 Assessment: 13:35 General: Appears in no apparent distress. Behavior is calm, cooperative, anxious. me1 Neuro: Level of Consciousness is awake, alert, obeys commands, Oriented to Appropriate for age. 14:30 Reassessment: No changes from previously documented assessment. Patient is alert, me1 oriented x 3, equal unlabored respirations, skin warm/dry/pink. 17:30 Reassessment: REPORT TO JULEE MARIN AT [facility], TRANSFER PENDING ETOH <180. me1 17:50 General: Appears in no apparent distress. Behavior is calm, cooperative. me1 Psych: 13:32 Rufe Suicide Severity Screening: In the past month, have you wished you were aa5 or wished you could go to sleep and not wake up? Patient responds "yes." "In the past month, have you actually had any thoughts of killing yourself?" Patient responds "yes." "In your lifetime, have you ever done anything, started to do anything, or prepared to do anything to end your life?" Patient responds "yes." Patient reports suicidal intent occurred greater than 3 months prior. Rated as High risk. 13:35 Subjective: Patient's mood is sad, Delusions are denied, Hallucinations are denied me1 Having thoughts of suicide. Denies suicidal plan. Objective: Patient is cooperative, Speech is normal, Affect is appropriate. Interventions: Removed personal items and placed in bag. Patient placed in hospital gown. Searched person for dangerous items. Urine collected and sent for urine drug test. Belonging list filled out. Safety Checks: Personal items have been removed. Door is open. Visitors are present. Patient uses of beer. Commitment: Patient will be a voluntary commitment. Vital Signs: 13:32 BP 126 / 89; Pulse 114; Resp 18 S; Temp 97.8(TE); Pulse Ox 100% on R/A; Weight 62.6 kg aa5 (R); Height 5 ft. 3 in. (R); 19:12 BP 122 / 79; Pulse 100; Resp 18; Temp 98.2; Pulse Ox 99% on R/A; vk 19:47 BP 120 / 80; Pulse 95; Resp 18; Temp 98.1; Pulse Ox 98% on R/A; vk 20:05 BP 119 / 74; Pulse 96; Resp 18; Temp 98.1(O); Pulse Ox 100% on R/A; me1 13:32 Body Mass Index 24.45 (62.60 kg, 160.02 cm) aa5 ED Course: 13:32 Arm band placed on. aa5 13:34 Patient arrived in ED. im 13:35 Patient has correct armband on for positive identification. Bed in low position. me1 13:35 Provided Education on: POC. Verbalized understanding. me1 13:38 Cristian Rios MD is Attending Physician. [facility] 13:43 Triage completed. aa5 14:12 Elvia Frey, TOMAS is Primary Nurse. me1 17:32 faxed chart to [facility]. me1 18:45 pt accepted in transfer to [facility] by dr ribera admin approval given by [facility]a villarreal. 18:48 Inserted saline lock: 22 gauge in right antecubital area, using aseptic technique. sm8 Blood collected. 18:49 EKG done, by ED staff. sm8 19:15 Warm blanket given. vk 19:31 Safety checks: Items removed: yes. Door open/sign placed on door: yes. Family/friend vk present: yes. Sitter present: Yes. Sitter at bedside. 19:32 Diet: Patient given water. vk 19:36 No provider procedures requiring assistance completed. me1 21:14 IV discontinued, intact, bleeding controlled, No redness/swelling at site. Pressure me1 dressing applied. Administered Medications: 14:20 Drug: NS 0.9% IV 1000 ml IV at 1 bolus Per protocol; 1000 mL bolus Route: IV; Rate: 1 me1 bolus; Site: right antecubital; 16:53 Follow up: Response: No adverse reaction; IV Status: Completed infusion me1 16:38 Drug: Thiamine IV 100 mg IV at bolus once Route: IV; Rate: bolus; Site: right as6 antecubital; 21:16 Follow up: IV Status: Completed infusion me1 16:38 Drug: Banana Bag - (Multivitamin IV 1 amp, NS 0.9% IV 1000 ml, Thiamine IV 100 mg, as6 foLIC Acid IVPB 1 mg) IV at 150 ml/hr once Route: IV; Rate: 150 ml/hr; Site: right antecubital; 21:16 Follow up: IV Status: Completed infusion me1 Medication: 19:36 VIS not applicable for this client. me1 Outcome: 14:57 ER care complete, transfer ordered by MD. iftikhar 20:10 Transferred by ground EMS Transfer form completed. Note: [facility] me1 20:10 Condition: stable 20:10 Instructed on the need for transfer, 20:17 Patient left the ED. jb4 Signatures: Elaine Llanos Corey, MD MD cha Calderon, Audri, RN RN aa5 Chuck Jiang RN RN jb4 Linwood Brown RN RN Brayan Thomason RN RN as6 Isi Maki Scarlett sm8 Elvia Frey RN RN me1 Tonia Mitchell Corrections: (The following items were deleted from the chart) 18:49 18:36 No provider procedures requiring assistance completed. bp sm8 18:49 13:35 Inserted saline lock: 20 gauge in right antecubital area, using aseptic sm8 technique. Blood collected. bp 19:31 13:35 General: Appears in no apparent distress. unkempt, Behavior is cooperative, me1 appropriate for age, anxious, bp 19:31 13:35 Pain: Denies pain. bp me1 19:31 13:35 Neuro: Level of Consciousness is awake, alert, obeys commands, Oriented to me1 Appropriate for age bp 19:32 17:50 General: Appears in no apparent distress. Behavior is calm, cooperative, me1 me1 19:32 13:35 General: Appears in no apparent distress. Behavior is calm, cooperative, anxious, me1 bp 19:32 13:35 Neuro: Level of Consciousness is awake, alert, obeys commands, Oriented to me1 Appropriate for age bp 19:32 14:30 Reassessment: No changes from previously documented assessment. Patient is alert, me1 oriented x 3, equal unlabored respirations, skin warm/dry/pink. bp 19:32 17:30 Reassessment: REPORT TO JULEE MARIN AT [facility], TRANSFER PENDING ETOH <180. bp tx1 19:33 13:35 [facility] ED Fall Risk Assessment (Adult) History of falling in the last 3 months, me1 including since admission No falls in past 3 months (0 pts) bp 19:33 13:35 Abuse screen: Denies threats or abuse. Denies injuries from another. bp me1 19:33 13:35 Nutritional screening: No deficits noted. bp me1 19:33 13:35 Tuberculosis screening: No symptoms or risk factors identified. bp tx1 19:34 17:32 faxed chart to [facility]. bd tx1 19:34 13:35 Patient has correct armband on for positive identification. Bed in low position. tx1 bp 19:34 13:35 Provided Education on: N/A. bp tx1 19:34 18:45 pt accepted in transfer to [facility] by dr ribera admin approval me1 given by marcela villarreal. bd 19:35 13:35 Subjective: Patient's mood is sad, Delusions are denied, Hallucinations are me1 denied Having thoughts of suicide. Denies suicidal plan. bp 19:35 13:35 Objective: Patient is cooperative, Speech is normal, Affect is appropriate, bp me1 19:35 13:35 Interventions: Removed personal items and placed in bag. Patient placed in [facility] gown. Searched person for dangerous items. Urine collected and sent for urine drug test. Belonging list filled out. bp 19:35 13:35 Safety Checks: Personal items have been removed. Door is open. Visitors are me1 present. bp 19:35 13:35 Patient uses of beer, bp me1 19:35 13:35 Commitment: Patient will be a voluntary commitment. bp me1 21:14 13:40 Home Meds: Trileptal 150 mg Oral tablet once; aa5 me1 21:14 13:40 Home Meds: Topamax Oral; aa5 me1 21:14 13:40 Home Meds: Ativan Oral; aa5 me1 21:14 13:40 Home Meds: Hydroxyzine Oral; aa5 me1 21:14 13:40 Home Meds: mirtazapine Oral; aa5 me1
--- NOTE | 2023-12-08 14:58 | EDPHYS ---
Physician Documentation [facility] Name: Alyssa Miller Age: 33 yrs Sex: Female : 1990 Arrival Date: 12/08/2023 Time: 13:32 Bed 13 Private MD: ED Physician Cristian Rios HPI: 12/07 14:50 This 33 yrs old Female presents to ER via Ambulatory with complaints of iftikhar Suicidal Ideation. 14:50 The patient presents to the emergency department with depression, suicide ideation, and iftikhar the patient has a plan, to hang oneself. Onset: The symptoms/episode began/occurred 3 day(s) ago. Past psychiatric history: Prior diagnosis: bipolar disorder, depression. Associated signs and symptoms: Pertinent positives; depression, suicide ideation. Severity of symptoms: At their worst the symptoms were severe in the emergency department the symptoms are unchanged. The patient has experienced similar episodes in the past, a few times. 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, unknown me1 Historical: - Allergies: 13:40 No Known Allergies; aa5 - Home Meds: 21:11 Trileptal 150 mg Oral tablet 1 tab once [Active]; Topamax 25 mg oral tablet 1 tab every me1 day at bedtime [Active]; Ativan 1 mg oral tablet 1 tab prn for anxiety [Active]; hydroxyzine HCl 25 mg oral tablet 1 tab every day at bedtime [Active]; mirtazapine 15 mg oral tablet 1 tab every day at bedtime [Active]; trazodone 50 mg Oral tablet 1 tab every day at bedtime [Active]; - PMHx: 13:40 Bipolar disorder; manic depression (Bipolar disorder); aa5 - PSHx: 13:40 None; aa5 - Immunization history:: Adult Immunizations up to date. - Infectious Disease History:: Denies. - Social history:: Smoking status: Reported history of juuling and/or vaping. ROS: 14:51 Constitutional: Negative for fever, chills, and weight loss, Eyes: Negative for injury, iftikhar pain, redness, and discharge, ENT: Negative for injury, pain, and discharge, Neck: Negative for injury, pain, and swelling, Cardiovascular: Negative for chest pain, palpitations, and edema, Respiratory: Negative for shortness of breath, cough, wheezing, and pleuritic chest pain, Abdomen/GI: Negative for abdominal pain, nausea, vomiting, diarrhea, and constipation, Back: Negative for injury and pain, : Negative for injury, bleeding, discharge, and swelling, MS/Extremity: Negative for injury and deformity, Skin: Negative for injury, rash, and discoloration, Neuro: Negative for headache, weakness, numbness, tingling, and seizure, Allergy/Immunology: Negative for hives, rash, and allergies, Endocrine: Negative for neck swelling, polydipsia, polyuria, polyphagia, and marked weight changes, Hematologic/Lymphatic: Negative for swollen nodes, abnormal bleeding, and unusual bruising, 14:51 Psych: Positive for depression, suicidal ideation, Exam: 14:51 Constitutional: This is a well developed, well nourished patient who is awake, alert, iftikhar and in no acute distress. Head/Face: Normocephalic, atraumatic. Eyes: Pupils equal round and reactive to light, extra-ocular motions intact. Lids and lashes normal. Conjunctiva and sclera are non-icteric and not injected. Cornea within normal limits. Periorbital areas with no swelling, redness, or edema. ENT: Nares patent. No nasal discharge, no septal abnormalities noted. Tympanic membranes are normal and external auditory canals are clear. Oropharynx with no redness, swelling, or masses, exudates, or evidence of obstruction, uvula midline. Mucous membranes moist. Neck: Trachea midline, no thyromegaly or masses palpated, and no cervical lymphadenopathy. Supple, full range of motion without nuchal rigidity, or vertebral point tenderness. No Meningismus. Chest/axilla: Normal chest wall appearance and motion. Nontender with no deformity. No lesions are appreciated. Cardiovascular: Regular rate and rhythm with a normal S1 and S2. No gallops, murmurs, or rubs. Normal PMI, no JVD. No pulse deficits. Respiratory: Lungs have equal breath sounds bilaterally, clear to auscultation and percussion. No rales, rhonchi or wheezes noted. No increased work of breathing, no retractions or nasal flaring. Abdomen/GI: Soft, non-tender, with normal bowel sounds. No distension or tympany. No guarding or rebound. No evidence of tenderness throughout. Back: No spinal tenderness. No costovertebral tenderness. Full range of motion. Skin: Warm, dry with normal turgor. Normal color with no rashes, no lesions, and no evidence of cellulitis. MS/ Extremity: Pulses equal, no cyanosis. Neurovascular intact. Full, normal range of motion. Neuro: Awake and alert, GCS 15, oriented to person, place, time, and situation. Cranial nerves II-XII grossly intact. Motor strength 5/5 in all extremities. Sensory grossly intact. Cerebellar exam normal. Normal gait. Psych: Awake, alert, with orientation to person, place and time. Behavior, mood, and affect are within normal limits. 14:51 ECG was reviewed by the Attending Physician. Vital Signs: 13:32 BP 126 / 89; Pulse 114; Resp 18 S; Temp 97.8(TE); Pulse Ox 100% on R/A; Weight 62.6 kg aa5 (R); Height 5 ft. 3 in. (R); 19:12 BP 122 / 79; Pulse 100; Resp 18; Temp 98.2; Pulse Ox 99% on R/A; vk 19:47 BP 120 / 80; Pulse 95; Resp 18; Temp 98.1; Pulse Ox 98% on R/A; vk 20:05 BP 119 / 74; Pulse 96; Resp 18; Temp 98.1(O); Pulse Ox 100% on R/A; me1 13:32 Body Mass Index 24.45 (62.60 kg, 160.02 cm) aa5 MDM: 13:39 Patient medically screened. iftikhar 14:54 Differential diagnosis: drug withdrawal. acute psychotic break, depression, psychosis iftikhar secondary to non-compliance. Data reviewed: vital signs, nurses notes, lab test result(s), EKG. Consideration of Admission/Observation Escalation of care including admission/observation considered. I considered the following discharge prescriptions or medication management in the emergency department Medications were administered in the Emergency Department. See MAR. Independent interpretation of the following test(s) in the Emergency Department EKG: See my EKG interpretation above. Test considered but Not performed: CT: no ct brain. Historians other than the Patient: Family Member: sister. Care significantly affected by the following chronic conditions: bipolar, ptsd, manic , suicide thoughts. 12/07 13:40 Order name: Acetaminophen; Complete Time: 15:34 iftikhar 12/07 13:40 Order name: Basic Metabolic Panel; Complete Time: 15:34 iftikhar 12/07 13:40 Order name: CBC with Diff; Complete Time: 15:34 iftikhar 12/07 13:40 Order name: ETOH Level; Complete Time: 15:34 iftikhar 12/07 13:40 Order name: Hepatic Function; Complete Time: 15:34 iftikhar 12/07 13:40 Order name: PT-INR; Complete Time: 15:34 12/07 13:40 Order name: Test, Urine; Complete Time: 15:34 iftikhar 12/07 13:40 Order name: Ptt, Activated; Complete Time: 15:34 iftikhar 12/07 13:40 Order name: Salicylate; Complete Time: 15:34 iftikhar 12/07 13:40 Order name: Urinalysis w/ reflexes; Complete Time: 15:34 iftikhar 12/07 17:27 Order name: ETOH Level; Complete Time: 18:57 12/07 13:40 Order name: EKG; Complete Time: 13:41 12/07 13:40 Order name: EKG - Nurse/Tech; Complete Time: 14:52 iftikhar 12/07 13:40 Order name: IV Saline Lock; Complete Time: 14:51 iftikhar 12/07 13:40 Order name: Labs collected and sent; Complete Time: 14:51 iftikhar 12/07 13:40 Order name: Suicide Precautions; Complete Time: 14:51 iftikhar 12/07 13:40 Order name: Suicide Screening ([place]); Complete Time: 14:51 iftikhar EC:51 Rate is 85 beats/min. Rhythm is regular. QRS [facility] [facility] is Normal. ID interval is normal. QRS iftikhar interval is normal. QT interval is normal. No Q waves. T waves are Normal. No ST changes noted. Clinical impression: Normal ECG and No evidence of ischemia. Interpreted by me. Reviewed by me. Administered Medications: 14:20 Drug: NS 0.9% IV 1000 ml IV at 1 bolus Per protocol; 1000 mL bolus Route: IV; Rate: 1 me1 bolus; Site: right antecubital; 16:53 Follow up: Response: No adverse reaction; IV Status: Completed infusion me1 16:38 Drug: Thiamine IV 100 mg IV at bolus once Route: IV; Rate: bolus; Site: right as6 antecubital; 21:16 Follow up: IV Status: Completed infusion me1 16:38 Drug: Banana Bag - (Multivitamin IV 1 amp, NS 0.9% IV 1000 ml, Thiamine IV 100 mg, as6 foLIC Acid IVPB 1 mg) IV at 150 ml/hr once Route: IV; Rate: 150 ml/hr; Site: right antecubital; 21:16 Follow up: IV Status: Completed infusion me1 Disposition Summary: 12/08/23 14:57 Transfer Ordered Notes: Transfer Location: Psych Facility iftikhar Reason: Higher level of care iftikhar Condition: Stable iftikhar Problem: an acute exacerbation iftikhar Symptoms: are unchanged iftikhar Accepting Physician: to psych , voluntary(12/08/23 20:17) jb4 Diagnosis - Bipolar disorder, current episode depressed, severe, without psychotic features iftikhar - Suicidal ideations iftikhar - Alcohol abuse with intoxication iftikhar Forms: - Medication Reconciliation Form iftikhar - SBAR form iftikhar Signatures: Dispatcher [employer] Cristian Quispe MD MD cha Calderon, Audri RN RN aa5 Chuck Jiang RN RN jb4 Brayan Romero RN RN as6 Elvia Frey RN RN me1 Corrections: (The following items were deleted from the chart) 13:41 13:41 ACETAMINOPHEN+C.LAB.BRZ ordered. EDMS EDMS 13:41 13:41 BASIC METABOLIC PANEL+C.LAB.BRZ ordered. EDMS EDMS 13:41 13:41 CBC+H.LAB.BRZ ordered. EDMS EDMS 13:41 13:41 ETHANOL+C.LAB.BRZ ordered. EDMS EDMS 13:41 13:41 HEPATIC FUNCTION+C.LAB.BRZ ordered. EDMS EDMS 13:41 13:41 PROTIME (+INR)+COAG.LAB.BRZ ordered. EDMS EDMS 13:41 13:41 Test, Urine+UC.LAB.BRZ ordered. EDMS EDMS 13:41 13:41 PTT, ACTIVATED+COAG.LAB.BRZ ordered. EDMS EDMS 13:41 13:41 SALICYLATE+C.LAB.BRZ ordered. EDMS EDMS 13:41 13:41 Urinalysis+U.LAB.BRZ ordered. EDMS EDMS 13:41 13:41 URINE DRUG SCREEN+UC.LAB.BRZ ordered. EDMS EDMS 15:36 14:57 to psych , voluntary iftikhar iftikhar 20:17 15:36 to psych , voluntary [facility] jb4 21: 13:40 Home Meds: Trileptal 150 mg Oral tablet once; aa5 me1 : 13:40 Home Meds: Topamax Oral; 5 me1 : 13:40 Home Meds: Ativan Oral; 5 me1 : 13:40 Home Meds: Hydroxyzine Oral; 5 me1 21: 13:40 Home Meds: mirtazapine Oral; 5 ar1
[2023-12-08 15:12] LABS: ALT/SGPT 61 U/L (13-56); AST/SGOT 92 U/L (15-37); Albumin 4.3 g/dL (3.4-5.0); Albumin/Globulin Ratio 0.9 (1.1-1.8); Alkaline Phosphatase 99 U/L (45-117); Anion Gap 8.7 mEq/L (5.0-15.0); BUN Blood Urea Nitrogen 6 mg/dL (7-18); Bicarbonate 27 mEq/L (21-32); Bilirubin Direct 0.3 mg/dL (0-0.2); Bilirubin Total 0.3 mg/dL (0.2-1.0); Globulin 4.8 g/dL (2.3-3.5); Glomerular Filtration Rate 117 ml/min (=/>90); Glucose Level 96 mg/dL (74-106); Potassium 3.7 mEq/L (3.5-5.1); Protein, Total 9.1 g/dL (6.4-8.2); Sodium Level 138 mEq/L (136-145)
[2023-12-08] MEDS ORDERED: FOLIC ACID 5 MG/ML VIAL ONE (16:29)
[2023-12-08] MEDS ORDERED: MULTIVITAMINS 10 ML VIAL (INJ) IV ONE (16:29)
[2023-12-08] MEDS ORDERED: THIAMINE 200 MG/2 ML INJ ONE (16:29)
[2023-12-08] MEDS ORDERED: FOLIC ACID 1 MG, MULTIVITAMINS INJ 10 ML, THIAMINE HCL 100 MG in NA CHLORIDE 0.9% 1,000 ML IV ONE (17:00)
[2023-12-09 04:49] VITALS: BP 120/80; TEMP 98.1; O2SAT 98
== END 2023-12-08 20:17 ==
LOC: ER 13:32
DX: R45.851 Suicidal ideations (principal); F31.4 Bipolar disorder, current episode depressed, severe, without psychotic features; F10.129 Alcohol abuse with intoxication, unspecified
CPT/HCPCS: 96365; 96361; 96368; 93005; 85025; 81001; 80048; 36415; 81025; 85610; 80076; 85730; 99285; 96366; 80143; 80179; 82077 ×2; J3411; J7030 ×2

== ENCOUNTER 2024-04-23 02:12 | Emergency (ER) | payer OTHER ==
--- OUTSIDE RECORDS SUMMARY | 2024-04-23 02:15 | XMS REPORT | Continuity of Care Document ---
Author Name Unknown Address [address] [place] [address] [employer] Address [address] [place] [address] [address] [place] [address] Care Team Providers Care Line Builder Name Role Phone Unavailable Unavailable Unavailable Encounters Start Date/Time End Date/Time Encounter Type Admission Type Attending Clinicians Care Facility Care Department Encounter ID Source 2023-03-17 08:31:23 2023-03-17 08:31:23 Outpatient [facility] [id number] Matty Rai
[2024-04-23] MEDS ORDERED: NA CHLORIDE 0.9% 1,000 ML ONE (03:05)
[2024-04-23] MEDS ORDERED: TDAP (DIPHTH,PERTUSS(ACELL),TET VAC) 0.5 ML VIAL IMVAC ONE (03:05)
[2024-04-23] MEDS ORDERED: ONDANSETRON 4 MG/2 ML VIAL ONE (03:05)
[2024-04-23 03:24] LABS: Absolute Lymphocytes (CBC) 1.3 K/uL (0.7-4.9); Absolute Monocytes 0.5 K/uL (0.1-1.3); Absolute Neutrophil 1.9 K/uL (1.8-8.0); Basophils % 0.9 % (0-1.3); Eosinophils % 0.9 % (0-4.4); Hemoglobin 13.6 g/dL (12.0-15.0); Lymphocytes % 34.7 % (15.3-44.8); MCH 32.9 pg (27.0-35.0); MCHC 33.2 g/dL (32.0-36.0); MPV 7.9 fL (7.6-11.3); Monocytes % 13.9 % (3.3-12.3); Neutrophils % 49.6 % (41.7-73.7); Nucleated Red Blood Cells % 0.1 % (0-0); Platelets 256 thou/uL (152-406); RBC Red Blood Cell Count 4.14 M/uL (3.86-4.86); Red Cell Distribution Width 14.3 % (12.1-15.2)
[2024-04-23 03:29] LABS: PT Prothrombin Time 11.3 SECONDS (9.4-12.5); PTT, Activated Partial Thromb 28.8 SECONDS (24.3-36.9); Protime INR 1.01
[2024-04-23 03:34] LABS: ALT/SGPT 38 U/L (13-56); AST/SGOT 49 U/L (15-37); Albumin 3.3 g/dL (3.4-5.0); Albumin/Globulin Ratio 0.7 (1.1-1.8); Alkaline Phosphatase 75 U/L (45-117); Anion Gap 12.6 mEq/L (5.0-15.0); Bicarbonate 23 mEq/L (21-32); Bilirubin Direct 0.2 mg/dL (0-0.2); Bilirubin Total 0.3 mg/dL (0.2-1.0); Globulin 4.6 g/dL (2.3-3.5); Glomerular Filtration Rate 123 ml/min (=/>90); Glucose Level 128 mg/dL (74-106); Protein, Total 7.9 g/dL (6.4-8.2); Sodium Level 137 mEq/L (136-145)
[2024-04-23 03:37] LABS: BUN Blood Urea Nitrogen < 3 mg/dL (7-18); Potassium 2.6 mEq/L (3.5-5.1)
[2024-04-23] MEDS ORDERED: KCL 20 MEQ/100 mL IVPB 100 ML IV ONE (04:00)
[2024-04-23] MEDS ORDERED: POTASSIUM CL SA 10 MEQ TAB PO ONE (04:00)
[2024-04-23 04:11] LABS: Barbiturates NEGATIVE (NEGATIVE); Benzodiazepines NEGATIVE (NEGATIVE); Cocaine NEGATIVE (NEGATIVE); METHAMPHETAM NEGATIVE (NEGATIVE); Methadone NEGATIVE (NEGATIVE); Opiates NEGATIVE (NEGATIVE); Phencyclidine NEGATIVE (NEGATIVE); THC Cannibis NEGATIVE (NEGATIVE)
[2024-04-23] MEDS ORDERED: KETOROLAC 30 MG/ML INJ ONE (04:12)
[2024-04-23] MEDS ORDERED: NA CHLORIDE 0.9% 500 ML ONE (05:01)
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
[2024-04-23] MEDS ORDERED: IBUPROFEN 400 MG TAB ONE (07:27)
[2024-04-23 09:00] VITALS: TEMP 98.3
[2024-04-23 09:06] VITALS: BP 104/72; O2SAT 98
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
--- NOTE | 2024-04-24 12:39 | EKG ---
Test Date: 2024-04-23 Test Time: 02:52:01 Guest Experience Manager: SIL MEASUREMENT RESULTS: Intervals: Rate: 96 MS: 140 QRSD: 90 QT: 370 QTc: 467 [place]: P: 42 MS: 140 QRS: 68 T: 43 INTERPRETIVE STATEMENTS: Normal sinus rhythm Normal ECG Compared to ECG 12/08/2023 14:32:18 No significant changes Electronically Signed On 04-24-24 12:37:14 CDT by Miles Burns
== END 2024-04-23 08:50 | disposition home or self-care (01) ==
LOC: ER 02:12
DX: S01.01XA Laceration without foreign body of scalp, initial encounter (principal); F10.929 Alcohol use, unspecified with intoxication, unspecified
CPT/HCPCS: 96365; 93005; 85025; 36415; 84703; 85610; 85730; 82248; 80053; 80307; 70450; 72125; 71045; 96375; 96372; 99285; 96366; 12002; 80143; 80179; 82077; J3480; J2405; J7040; J7030